=== PATIENT | female | born 1935 | race Caucasian/White ===

== ENCOUNTER 2017-10-29 13:07 | Observation (INO) | payer BC, OTHER ==
--- NOTE | 2017-10-29 13:37 | CPEKG ---
Heart Rate: 65 RR Interval: 923 P-R Interval: 172 QRSD Interval: 86 QT Interval: 420 QTC Interval: 437 P [place]: 46 QRS [place]: -6 T Wave [place]: 14 EKG Severity - NORMAL ECG - EKG Impression: SINUS RHYTHM Electronically Signed By: Talon Daigle 29-Oct-2017 13:42:41
--- NOTE | 2017-10-29 13:51 | EDPHY ---
H & P Time Seen by Provider: 10/29/17 13:40 HPI/ROS: CHIEF COMPLAINT: Shortness of breath with exertion HISTORY OF PRESENT ILLNESS: 81-year-old woman just got here from [place] a week ago. She has done this before in usually after couple of days she adjusted the altitude. However over the last 4 days every time she exerts herself heart started pounding and she gets short of breath. Not associated with cough or leg swelling. Mild at rest but severe with exertion. Not associated with chest pain or fever. REVIEW OF SYSTEMS: Eye: no change in vision ENT: no sore throat Cardiac: no chest pain or syncope Pulmonary: HPI Abdomen: no vomiting, diarrhea, abdominal pain Musculoskeletal: No leg swelling Skin: no rash Neuro: no headache Constitutional: no fever : no urinary symptoms A comprehensive 10 point review of systems is otherwise negative aside from elements mentioned in the history of present illness. PAST MEDICAL HISTORY: Hypertension high cholesterol Social history: Nonsmoker General Appearance: Alert and conversant, cooperative. Eyes: No scleral icterus. ENT, Mouth: Normal mucous membranes. Respiratory: Normal respiratory effort, breath sounds equal, lungs are clear to auscultation. Cardiovascular: Regular rate and rhythm. Gastrointestinal: Abdomen is soft and non tender. Neurological: Alert, face symmetric, normal motor and sensory in extremities. Skin: Warm and dry, no rashes. Musculoskeletal: No peripheral edema. No calf tenderness. Psychiatric: Not agitated. Emergency Department course/MDM: Suspicion at least moderately high for pulmonary embolism or acute coronary syndrome with exertional dyspnea in a woman with risk factors she just had a long travel. EKG, troponin and D-dimer, chest x-ray. 1523: CTA discussed and consented. 1625: CTA negative per [place]. Oral aspirin, admission for evaluation of exertional dyspnea as possible anginal equivalent. Smoking Status: Never smoked Constitutional: Initial Vital Signs Temperature (C) 36.4 C 10/29/17 13:16 Heart Rate 62 10/29/17 13:16 Respiratory Rate 18 10/29/17 13:16 Blood Pressure 156/78 H 10/29/17 13:16 O2 Sat (%) 95 10/29/17 13:16 O2 Delivery Mode Room Air Allergies/Adverse Reactions: No Known Allergies Allergy (Verified 10/29/17 14:28) Home Medications: Medication Instructions Recorded Calcium Carbonate [Oyster Shell 500 mg PO DAILY 10/29/17 Calcium 500 mg (*)] Cyanocobalamin [Vitamin B12 (*)] 1,000 mcg PO DAILY 10/29/17 Glucosamine Sulfate [Glucosamine 500 mg PO DAILY 10/29/17 Sulfate 500 MG (*)] Lisinopril [Zestril 10 mg (*)] 10 mg PO DAILY18 10/29/17 Lovastatin 40 mg PO DAILY18 10/29/17 Multivitamins [Multivitamin (*)] 1 each PO DAILY 10/29/17 Niacin [Niacin 500 mg (*)] 500 mg PO HS 10/29/17 Medical Decision Making - Diagnostics EKG Interpretation: 12-lead EKG interpreted by me; official reading is in trace master. My interpretation is sinus rhythm rate 65 no ischemic changes, PVC. Imaging Results: Imaging Impressions Chest X-Ray 10/29/17 13:49 Impression: Stable negative chest. Chest/Thorax CTA 10/29/17 15:22 Impression: 1. No evidence of pulmonary embolus using CT protocol. 2. Mild dependent ground glass pulmonary edema suspected at the lung bases. Findings discussed with Talon Daigle M.D. at 16:18 hour, 10/29/2017. Imaging: Discussed imaging studies w/ cyanide pot hardener Radiologist Differential Diagnosis: Differential diagnosis considered for shortness of breath including but not limited to pulmonary infectious process, COPD, asthma, pulmonary embolus and congestive heart failure. Consult/Admit Bed Type: [place] [id number] - Data Points Laboratory Results: Laboratory Results 10/29/17 14:47 10/29/17 14:47 10/29/17 10/29/17 10/29/17 14:49 14:47 14:47 WBC RBC Hgb Hct MCV MCH MCHC RDW Plt Count MPV Neut % (Auto) Lymph % (Auto) [place] % (Auto) Eos % (Auto) Baso % (Auto) Nucleat RBC Rel Count Absolute Neuts (auto) Absolute Lymphs (auto) Absolute Monos (auto) Absolute Eos (auto) Absolute Basos (auto) Absolute Nucleated RBC Immature Gran % Immature Gran # D-Dimer 0.55 ug/mLFEU H ug/mLFEU (0.00-0.50) Sodium 143 mEq/L mEq/L (135-145) Potassium 4.1 mEq/L mEq/L (3.3-5.0) Chloride 109 mEq/L mEq/L (97-110) Carbon Dioxide 24 mEq/l mEq/l (22-31) Anion Gap 10 mEq/L mEq/L (8-16) BUN 18 mg/dL mg/dL (7-23) Creatinine 1.0 mg/dL mg/dL (0.6-1.0) Estimated GFR 53 Glucose 98 mg/dL mg/dL (70-100) Calcium 9.9 mg/dL mg/dL (8.5-10.4) POC Troponin I 0.00 ng/mL ng/mL (0.00-0.08) 10/29/17 14:47 WBC 7.45 10^3/uL 10^3/uL (3.80-9.50) RBC 4.65 10^6/uL 10^6/uL (4.18-5.33) Hgb 14.4 g/dL g/dL (12.6-16.3) Hct 42.5 % % (38.0-47.0) MCV 91.4 fL fL (81.5-99.8) MCH 31.0 pg pg (27.9-34.1) MCHC 33.9 g/dL g/dL (32.4-36.7) RDW 13.4 % % (11.5-15.2) Plt Count 255 10^3/uL 10^3/uL (150-400) MPV 10.6 fL fL (8.7-11.7) Neut % (Auto) 56.1 % % (39.3-74.2) Lymph % (Auto) 34.0 % % (15.0-45.0) [place] % (Auto) 8.2 % % (4.5-13.0) Eos % (Auto) 1.1 % % (0.6-7.6) Baso % (Auto) 0.5 % % (0.3-1.7) Nucleat RBC Rel Count 0.0 % % (0.0-0.2) Absolute Neuts (auto) 4.18 10^3/uL 10^3/uL (1.70-6.50) Absolute Lymphs (auto) 2.53 10^3/uL 10^3/uL (1.00-3.00) Absolute Monos (auto) 0.61 10^3/uL 10^3/uL (0.30-0.80) Absolute Eos (auto) 0.08 10^3/uL 10^3/uL (0.03-0.40) Absolute Basos (auto) 0.04 10^3/uL 10^3/uL (0.02-0.10) Absolute Nucleated RBC 0.00 10^3/uL 10^3/uL (0-0.01) Immature Gran % 0.1 % % (0.0-1.1) Immature Gran # 0.01 10^3/uL 10^3/uL (0.00-0.10) D-Dimer Sodium Potassium Chloride Carbon Dioxide Anion Gap BUN Creatinine Estimated GFR Glucose Calcium POC Troponin I Point of Care Test Results: Chemistry 10/29/17 14:49 POC Troponin I 0.00 ng/mL ng/mL (0.00-0.08) Departure - Departure Disposition: [facility] Inpatient Acute Clinical Impression: Dyspnea on exertion Condition: Good
[2017-10-29 15:03] LABS: PLATELET COUNT 255 10^3/uL (150-400)
[2017-10-29] MEDS ORDERED: IOPAMIDOL (ISOVUE 370) 100 ML BTL IV ONE (15:29)
[2017-10-29] MEDS ORDERED: ACETAMINOPHEN 325 MG TAB PO PRN (16:32)
[2017-10-29] MEDS ORDERED: ONDANSETRON 4 MG/2 ML VIAL IVP PRN (16:32)
[2017-10-29] MEDS ORDERED: ONDANSETRON DISINTEGRATING 4 MG TAB PO PRN (16:32)
[2017-10-29] MEDS ORDERED: ASPIRIN 81 MG CHEWABLE TAB PO ONE (16:34)
--- NOTE | 2017-10-29 18:41 | GHP ---
[f rep st] HISTORY AND PHYSICAL DATE OF ADMISSION: 10/29/2017 CHIEF COMPLAINT: Palpitations with shortness of breath. HISTORY OF PRESENT ILLNESS: An 81-year-old female with history of hypertension, hyperlipidemia, pres enting with palpitations and shortness of breath for the past 4 days. She spends half her time in [facility] and half the year in [place]. They just returned here to [place] a week ago. When she first came to [place], she did notice palpitations and some shortness of breath, but that usually re solved in a couple days. She is concerned that the symptoms have been more persistent. She feels he r heart racing with shortness of breath, specifically when bending over. No dizziness. No PND, pill ow orthopnea, or lower extremity edema. She had a recent cold 2 weeks ago. Drinks 1 to 1-1/2 cups o f caffeine a day. She was doing stretches a couple of days ago and noticed a sharp pain in her left breast for a few seconds. She walked a mile today without any chest pain or shortness of breath. REVIEW OF SYSTEMS: I completed a 10-point review of systems, negative except as noted in the HPI. PAST MEDICAL HISTORY: Hypertension, hyperlipidemia. PAST SURGICAL HISTORY: Hysterectomy. FAMILY HISTORY: Mother with a brain aneurysm. Father committed suicide. SOCIAL HISTORY: She spends half of the time in [place], and half of the time here in [place]. She drinks a glass of wine daily. No tobacco or illicits. ALLERGIES: None. HOME MEDICATIONS: Niacin 500 mg at bedtime, multivitamin, glucosamine, vitamin B12, calcium carbonat e, lovastatin 40, Zestril 10. PHYSICAL EXAMINATION: VITAL SIGNS: Temperature 36.4, blood pressure 171/89, heart rate in 70s, resp irations 16, 97% on room air. GENERAL: She is well-appearing, sitting in bed, no acute distress. H EENT: PERRLA. Moist mucous membranes. CV is regular rate and rhythm. No lower extremity edema. L UNGS: Clear. No crackles or wheezing. ABDOMEN: Soft, nontender, nondistended. Positive bowel holden nds. : No Dutta. MUSCULOSKELETAL: 5/5 upper and lower extremity strength. NEURO: 2 through 12 intact. PSYCH: Alert and oriented x3. WBC is 7.4, hemoglobin 14, hematocrit 42, platelets 255. D -dimer is 0.55. Sodium 141, potassium 4.1, chloride 109. Carbon dioxide 24, creatinine 1.0, glucose 98. BNP is 268. Troponin is 0.00. CTA: No pulmonary embolism. Mild dependent ground-glass pulmonary edema is suspected in lung bases. EKG is personally reviewed by me. Normal sinus rhythm with PVC. Chest x-ray is personally reviewed by me. No effusion or opacity. ASSESSMENT/PLAN: 1. Dyspnea: Suspect this is secondary to palpitations as these symptoms occurred together. She has evidence of PVC. No arrhythmia on EKG. We will monitor her on telemetry and check a PT, TSH, magne sium. Does have personal risk factors of hypertension and hyperlipidemia, but her symptoms are not c onsistent with ACS. We will repeat a troponin and EKG. If these are both negative, it is reasonable to check an outpatient stress test. 2. Hypertension. Resume lisinopril. 3. Hyperlipidemia. Niacin. 4. Diet. Cardiac. 5. DVT prophylaxis. Lovenox. DISPOSITION: Patient warrants observation admission for telemetry and serial troponins. /[id number]/MODL
[2017-10-30 07:54] VITALS: BP 148/77
[2017-10-30] MEDS ORDERED: ENOXAPARIN 40 MG/0.4 ML SYR SC SCH (09:00)
[2017-10-30] MEDS ORDERED: MULTIVITAMINS 1 EACH TAB PO SCH (10:15)
[2017-10-30] MEDS ORDERED: CYANO/VITAMIN B12 1000 MCG TAB PO SCH (10:15)
[2017-10-30] MEDS ORDERED: GLUCOSAMINE SULF 500 MG CAP PO SCH (10:15)
--- NOTE | 2017-10-30 10:23 | PDDCSUM ---
Discharge Summary Discharge Summary: Dates of service 10/29-10/30/17 Consultations: none Procedures: chest CTA Hospital course by problem: # palpitations: resolved, no acute events noted on tele, patient to f/u with cardiology for holter monitoring # dyspnea: resolved, possible 2/2 above, chest CTA negative for any acute findings # chronic medical issues: HTN, HLD--no changes made to op meds DC home in good condition f/u with cardiology for Holter monitoring
--- NOTE | 2017-10-30 10:52 | ASDISCHSUM ---
Discharge Information Plan Status:Home with No Needs Medically Cleared to Leave:10/30/2017 Discharge Date:10/30/2017 CM D/C Disposition:Home, Routine, Self-Care ADT D/C Disposition:Home, Routine, Self-Care Projected Discharge Date:10/30/2017 Transportation at D/C:Family Discharge Delay Reason: Follow-Up Date:10/30/2017 Discharge Slot: Final Diagnosis: Placement Information Patient Contact Information Contact Name:RITO Relationship: Address:[address] Work Phone: City:[facility] Phone: [facility]/Zip Code:[place] [address] Email: Financial Information Financial Class:Medicare Primary Plan Desc:MEDICARE OUTPATIENT Primary Plan Number:[id number] Secondary Plan Desc:BCBS OUT OF STATE [facility] Secondary Plan Number:[id number] Assessment Information LACE LACE Length of stay for Answers: Less than 1 day current admission Acuity / Level of Answers: No Care: Did the patient have an inpatient admission? Comorbidities - select Answers: Other Notes: HTN, mild dependent all that apply ground glass pulmonary edema # of Emergency department Answers: 1-2 visits in the last 6 months Score: 2 Date Signed: 10/30/2017 10:51 AM Electronically Signed By:Xiao Simon RN Intervention Information Intervention Type:*SHELTON-Signed Date of Service:10/30/2017 10:15 AM Patient Type:Observation Staff Member:Lucia Hutton Hours: Discipline: Severity: Comment:
[2017-10-30] MEDS ORDERED: LISINOPRIL 10 MG TAB PO SCH (18:00)
[2017-10-30] MEDS ORDERED: PRAVASTATIN SODIUM 40 MG TAB PO SCH (18:00)
[2017-10-30] MEDS ORDERED: NIACIN 500 MG TAB PO SCH (21:00)
[2017-10-31] MEDS ORDERED: CALCIUM CARBONATE 500 MG TAB PO SCH (09:00)
== END 2017-10-30 11:04 | disposition home or self-care (01) ==
LOC: F2W 18:11
PROVIDERS: ADMIT Internal Medicine; ATTEND Internal Medicine
DX: R06.02 Shortness of breath (principal); R00.2 Palpitations; I10 Essential (primary) hypertension; E78.5 Hyperlipidemia, unspecified
CPT/HCPCS: 71046; 71275; 93005; 99285; G0378; Q9967; 84484-PO; J1650